=== PATIENT | female | born 1960 | race Caucasian/White ===

== ENCOUNTER 2023-02-28 15:03 | Outpatient (AMB) | payer OTHER, SELFPAY ==
--- NOTE | 2023-02-28 15:05 | MHC.OFFVIS ---
Intake Vital Signs 02/28/23 15:06 Height 5 ft 1 in Weight 234 lb BMI 44.2 BP 116/78 Blood Pressure Location Rt brachial Position Sitting Pulse 79 Pulse Source Pulse Oximeter Pulse Oximetry (%) 94 Oxygen Delivery Method Room Air Intake Visit Reasons: ENP-Atypical Migraine Intake Note: Patient presents for atypical migraine. I've had auras since i was 41,now Im getting more frequently and now Marjan developed double vision as well Allergies No Known Allergies Allergy (Verified 02/28/23 15:11) Medication List - Last Reconciled 02/28/23 by Ana Guadarrama, DARVIN fluticasone propionate 220 mcg/actuation (Flovent HFA) 2 puffs inhalation BID hydrochlorothiazide 25 mg PO DAILY hyoscyamine sulfate mg PO levothyroxine 112 mcg PO DAILY meloxicam 15 mg PO DAILY sertraline mg PO HPI HPI Comments History of Present Illness Details Right-handed 62-yr-old female presents for new pt evaluation of headache disorder. Pt started having visual auras and migraines at age 41, which was about the time she went into anahi-menopause. In the past year, she is having more visual aura w/wo a WOMACK, diplopia, episodes of dizziness. She is still having headaches- though not most bothersome symptom. Denies dizziness or diplopia, other than during the aura. Denies nipple discharge, peripheral vision loss. Denies dysphagia, focal or general weakness. Headache questionnaire: Previous work-up? No head imaging. Typical headache characteristics: Prodrome symptoms? None Aura- Usual aura- starts as bilateral colorful zagged little lines in center of vision, spreads out into entire field of vision, and then dissipates. Lasts 10-15 minutes. If she had a WOMACK, the aura would precede the WOMACK. Frequency- several x's a week (not > 1 per day) New aura- room spinning dizziness f/b her eyes are looking in 2 different directions- feels like her right eye is off (spaced far apart)- has looked in the mirror and not noticed eye asymmetry. This aura lasts just a couple of minutes. This may/may not be f/b a WOMACK- although it is her usual WOMACK. Frequency every couple of weeks, and not > 1 per day. Location, quality, characteristics? Pressure headband (crossing the top of head ear to ear) Pain intensity? moderate Associated symptoms? photophobia, osmophobia. Focal weakness, Parethesias, Autonomic s/s? none- no weakness, no dysphagia, no eye droop. Postdrome? none Triggers? light, looking at her phone Any positional, valsalva, exertional, sexual activity triggers? none Menstrual triggers? n/a Time of day? No specific time of day Duration? WOMACK is 2-3 per week Frequency? WOMACK can last a couple of hours How does headache impact your life? Aura can it make it difficult to work/read. 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 Current acute medication use/interventions: Tylenol- prn, helps a little. Iburpfen works better- but does not take on days she has taken the Meloxicam. Previous acute medication use: None Current preventative medication use: None Previous preventative medication use: None Non-pharmacological interventions: Light shade, rest History of musculoskeletal disorders or injury? Has general neck tightness/pain History of concussion/head injury? None History of mood disorder? Anxiety and depression- well-controlled. History of sleep disorder? Sometimes sleeps well- make take her a while to fall asleep, may wake up a few times at night. Rarely snores. No h/o sleep study. History of respiratory disease? asthma, allergies History of CV disease? None History of coagulopathy? None History of endocrine or metabolic disease? Diabetes- recent dx History of seizure? None History of GI disorder? IBS w/ diarrhea. Family history of migraine or other headache disorder? her mother and sister had migarine and vertigo. PFSH Surgical History (Updated 02/28/23 @ 15:12 by SYLVIE Kong) H/O: hysterectomy H/O breast biopsy Family History (Updated 02/28/23 @ 15:12 by SYLVIE Kong) Mother HTN (hypertension) Father Diabetes Social History (Updated 02/28/23 @ 15:12 by SYLVIE Kong) Patient Tobacco Use Status: Never used Tobacco Review of Systems Const Details: See scanned ROS form Physical Exam Vital Signs: Last Vital Signs Pulse 79 02/28/23 15:06 BP 116/78 02/28/23 15:06 Pulse Ox 94 02/28/23 15:06 Oxygen Delivery Method Room Air 02/28/23 15:06 BMI result Body Mass Index 44.2 Const Orientation/consciousness: patient oriented x3 HEENT Other: No palpable scalp tenderness. Head: Yes normocephalic Resp Effort & Inspection: normal respiratory effort and able to speak in complete sentences Neuro Other: Photophobia EOM intact- although convergence induces dizzy/unwell sensation General: patient oriented x3 Cranial nerves: Yes CN's II-XII intact bilaterally Cognition (Neuro): normal cognition Gait exam (Neuro): Normal gait present Motor exam (neuro): 5/5 motor strength present throughout Deep tendon reflexes (DTR's): Right triceps reflex intensity grade: 2+, Left triceps reflex intensity grade: 2+, Rt Biceps (C5, C6): 2+, Left biceps reflex intensity grade: 2+, Right brachioradialis reflex intensity grade: 2+, Left brachioradialis reflex intensity grade: 2+, Right patellar reflex intensity grade: 2+ and Left patellar reflex intensity grade: 2+ Coordination: [id number] test normal, tandem gait normal and Romberg test negative Pupils: Normal pupillary reactivity/response: bilateral Psych Appearance: grossly normal Mental Status: mental status grossly normal Speech and movement: Normal speech and movement present Affect: normal affect Attitude: cooperative Thought process: Normal thought process present Assessment & Plan Assessment & Plan (1) Visual aura: Code(s): H53.9 - Unspecified visual disturbance (2) Migraine with aura: Code(s): G43.109 - Migraine with aura, not intractable, without status migrainosus (3) Worsening headaches: Code(s): R51.9 - Headache, unspecified (4) Diplopia: Code(s): H53.2 - Diplopia Plan Pt advised to undergo: Brain MRI w/wo- to assess for secondary etiologies of new onset aura a/w diplopia and dizziness- such as pituitary, occipital, or posterior fossa processes/dysfunction. Eye exam. Future considerations- MRA, lab work-up (MG, endo, etc). For overall headache management: Discussed importance of good self-care, including but not limited to maintaining a healthy diet, adequate fluid intake, adequate sleep, and engaging in regular physical activity. For headache triggers: Track headaches. Light sensitivity tips: Patient may try blue light filtering glasses, green glasses, green light therapy.. Continue to use desk shade. For acute headache treatment: Discussed importance of taking acute medications at the first sign of headache, however stressed importance of avoiding acute medication overuse (especially with combined headache medications). Trial Sumatriptan 100mg tab, 1/2 - 1 tab (50-100mg) at onset of headache, may repeat in 2 hours. Max of 2 tabs (200mg) per 24 hours. May adjunct with OTC Tylenol 650mg q 4 hours, Ibuprofen 600mg q 6 hours, or Naproxen 440mg q 12 hrs prn. (avoid NSAID on day she has taken Meloxicam). Reviewed potential adverse effects of triptans, including but not limited to nausea, fatigue, chest tightness/tingling (usually passes within a few minutes), medication overuse headaches. Previous acute migraine medication trials: None Acute migraine medication contraindications: None at this time For headache prevention medication: Discussed that preventative medications should be taken routinely as prescribed for best effect, it may take several weeks for full effect to take effect. Start OTC Riboflavin 400mg qam Start OTC Magnesium 400mg qhs Previous migraine prevention medication trials: none Migraine prevention medication contraindications: BBs d/t asthma dx Pt to follow-up in 1.5 months or sooner prn. Orders: Orders MR head/brain wo/w con 02/28/23 G43.109 - Migraine with aura, not intractable, without status migrainosus, H53.2 - Diplopia, H53.9 - Unspecified visual disturbance, R51.9 - Headache, unspecified Medications: New sumatriptan succinate (0.5 - 1 x 100 mg) 50 - 100 mg orally at onset of headache, may repeat in 2 hrs PRN; max 2 tabs per day or 4 tabs/week (may take with Ibuprofen) 30 days 12 tabs 6RF migraine headache Coding Level of Care Code New Pt Level 4 (15860) Diagnoses Visual aura H53.9 Migraine with aura G43.109 Worsening headaches R51.9 Diplopia H53.2
[2023-02-28 15:06] VITALS: BP 116/78; PULSE 79; O2SAT 94; BMI 44.2
== END 2023-02-28 16:13 | disposition home or self-care (01) ==
PROVIDERS: Visit Provider Nurse Practitioner Family
DX: H53.9 Unspecified visual disturbance (principal); G43.109 Migraine with aura, not intractable, without status migrainosus; R51.9 Headache, unspecified; H53.2 Diplopia
CPT/HCPCS: 99204

== ENCOUNTER → 2023-02-28 15:03 | Outpatient (BNVA) | payer OTHER, SELFPAY | PROVIDERS: Visit Provider Nurse Practitioner Family ==

== ENCOUNTER 2023-03-12 08:00 | Outpatient (REF) | payer OTHER, SELFPAY ==
--- NOTE | ~2023-03-12 | MR_ITS ---
EXAMINATION: MR BRAIN WITHOUT AND WITH CONTRAST CLINICAL INFORMATION: Visual disturbance COMPARISON: None TECHNIQUE: Multiplanar multisequence MR imaging of the brain was obtained without and following the administration of 10 mL Gadavist intravenous contrast. FINDINGS: There is no acute infarct on diffusion-weighted imaging. There is no intracranial hemorrhage on iron-sensitive imaging. No extra-axial collection or mass effect/herniation. Scattered periventricular and deep white matter T2 FLAIR hyperintensities consistent with mild underlying microangiopathy. No hydrocephalus. The ventricles are normal in morphology and size. No abnormal parenchymal or extra-axial enhancement. Small right parietal lobe developmental venous anomaly. The major flow voids at the skull base are preserved. Partially empty sella. The cerebellar tonsils are normally positioned. The craniocervical junction is normal. Marrow signal is within normal limits. The visualized soft tissues are without significant abnormality. No signal abnormality within the paranasal sinuses or within the mastoid air cells. MR/MR head/brain wo/w con IMPRESSION: Mild chronic white matter microangiopathy. Otherwise unremarkable contrast-enhanced MRI of the brain.
[2023-03-12] MEDS: gadobutroL 10 ML VIAL IVPUSH (09:01)
== END 2023-03-12 08:01 | disposition home or self-care (01) ==
LOC: HO.MRI 08:00
PROVIDERS: PCP Internal Medicine; Visit Provider Nurse Practitioner Family
DX: G43.109 Migraine with aura, not intractable, without status migrainosus (principal); H53.2 Diplopia; H53.9 Unspecified visual disturbance
CPT/HCPCS: 70553; A9585

== ENCOUNTER 2023-07-07 08:41 | Outpatient (AMB) | payer OTHER, SELFPAY ==
--- NOTE | 2023-07-07 08:51 | A.OFFVIS_ITS ---
Vital Signs 07/07/23 08:52 Height 5 ft 1 in Weight 237 lb BMI 44.8 BP 116/72 Blood Pressure Location Rt brachial Position Sitting Pulse 56 Pulse Source Pulse Oximeter Pulse Oximetry (%) 98 Oxygen Delivery Method Room Air Intake Visit Reasons: Follow up-LVM Intake Note: Patient presents for follow up. Patient's has been better but just had an episode of headache Allergies No Known Allergies Allergy (Verified 07/07/23 08:54) Medication List - Last Reconciled 07/07/23 by DARVIN Ambriz fluticasone propionate 220 mcg/actuation (Flovent HFA) 2 puffs inhalation BID hydrochlorothiazide 25 mg PO DAILY hyoscyamine sulfate mg PO levothyroxine 112 mcg PO DAILY meloxicam 15 mg PO DAILY sertraline mg PO sumatriptan succinate 50 - 100 mg orally at onset of headache, may repeat in 2 hrs PRN; max 2 tabs per day or 4 tabs/week (may take with Ibuprofen) 30 days HPI Comments Details: 62-yr-old female presents for f/u visit. Pt denies any significant interval medical changes. Pt reports that her headaches have been better overall. Having 2-3 mild- moderate migraines per week. No recent severe migraine aura attacks. She did start the B2 and Mag- tolerating well. She has been using Ibuprofen prn. The Sumatriptan was tolerated, but ineffective even if taken at the 1st sign. 03/12/23, MR/MR head/brain wo/w con IMPRESSION: Mild chronic white matter microangiopathy. Otherwise unremarkable contrast-enhanced MRI of the brain. Baseline headache characteristics: Usual aura- starts as bilateral colorful zagged little lines in center of vision, spreads out into entire field of vision, and then dissipates. Lasts 10- 15 minutes. If she had a WOMACK, the aura would precede the WOMACK. New aura- room spinning dizziness f/b her eyes are looking in 2 different directions- feels like her right eye is off (spaced far apart)- has looked in the mirror and not noticed eye asymmetry. This aura lasts just a couple of minutes. This may/may not be f/b a WOMACK- although it is her usual WOMACK. Headache: Moderate pressure headband (crossing the top of head ear to ear), a/w photophobia, osmophobia. PFSH Surgical History H/O: hysterectomy H/O breast biopsy Family History Mother HTN (hypertension) Father Diabetes Social History Patient Tobacco Use Status: Never used Tobacco Physical Exam Vital Signs: Last Vital Signs Pulse 56 07/07/23 08:52 BP 116/72 07/07/23 08:52 Pulse Ox 98 07/07/23 08:52 Oxygen Delivery Method Room Air 07/07/23 08:52 BMI result Body Mass Index 44.8 Const General: cooperative and no acute distress Orientation/consciousness: patient oriented x3 Resp Effort & Inspection: normal respiratory effort and able to speak in complete sentences Neuro General: patient oriented x3 Cranial nerves: Yes CN's II-XII intact bilaterally Cognition (Neuro): normal cognition Psych Appearance: grossly normal Mental Status: mental status grossly normal Speech and movement: Normal speech and movement present Affect: normal affect Attitude: cooperative Assessment & Plan Assessment & Plan (1) Migraine with aura: Code(s): G43.109 - Migraine with aura, not intractable, without status migrainosus Category: Medical (2) Visual aura: Code(s): H53.9 - Unspecified visual disturbance Category: Medical (3) Diplopia: Code(s): H53.2 - Diplopia Category: Medical Plan Reviewed Brain MRI w/wo- Mild chronic white matter microangiopathy. No findings to account for pt's newer migraine aura s/s. Migraine w/ aura attacks have imrpoved- will monitor. Pt to have an eye exam- when able. Future considerations- MRA, lab work-up (MG, endo, etc). ? For overall headache management: Continue to optimize good self-care, including but not limited to maintaining a healthy diet, adequate fluid intake, adequate sleep, and engaging in regular physical activity. Track headaches. Continue light sensitivity reduction strategies: Such as blue light filtering glasses and desk shade. ? For acute headache treatment: Discussed importance of taking acute medications at the first sign of headache, however stressed importance of avoiding acute medication overuse (especially with combined headache medications). Stop Sumatriptan 100mg tab- ineffective. Trial Eletriptan 40mg- 1/2- 1 tab at onset of headache, may repeat in 2 hours. Max of 2 tabs per 24 hours. May adjunct with OTC Ibuprofen 600-800mg q 6-8 hours (avoid NSAID on day she has taken Meloxicam). Ibuprofen 600-800mg prn. Previous acute migraine medication trials: Sumatriptan 100mg tab- ineffective. Acute migraine medication contraindications: None at this time ? For headache prevention medication: OTC Riboflavin 400mg qam OTC Magnesium 400mg qhs Previous migraine prevention medication trials: none Migraine prevention medication contraindications: BBs d/t asthma dx ? ? Pt to follow-up in 6 months or sooner prn. Medications: New eletriptan take 1 tab at onset of headache; if no relief, may repeat 1 tab after at least 2 hrs; max = 2 tabs/24 hrs orally PRN; 30 days 12 tabs 6RF migraine headache Discontinued sumatriptan succinate Discontinued Reason: Doctor's Order (0.5 - 1 x 100 mg) 50 - 100 mg orally at onset of headache, may repeat in 2 hrs PRN; max 2 tabs per day or 4 tabs/week (may take with Ibuprofen) 30 days 12 tabs 6RF migraine headache Coding Level of Care Code Est Pt Level 4 (61846) Diagnoses Migraine with aura G43.109 Visual aura H53.9 Diplopia H53.2
[2023-07-07 08:52] VITALS: BP 116/72; PULSE 56; O2SAT 98; BMI 44.8
== END 2023-07-07 09:17 | disposition home or self-care (01) ==
PROVIDERS: PCP Internal Medicine; Visit Provider Nurse Practitioner Family
DX: G43.109 Migraine with aura, not intractable, without status migrainosus (principal); H53.9 Unspecified visual disturbance; H53.2 Diplopia
CPT/HCPCS: 99214

== ENCOUNTER → 2023-07-07 08:41 | Outpatient (BNVA) | payer OTHER, SELFPAY | PROVIDERS: PCP Internal Medicine; Visit Provider Nurse Practitioner Family ==